=== PATIENT | male | born 1975 | race Caucasian/White ===

== ENCOUNTER 2017-04-17 07:01 | Day surgery (SDC) | payer BC ==
--- NOTE | ~2017-04-17 | OP ---
Record Of Operation [facility] [address] [place]. [address] NAME: LINDA CHANDLER : 79 STATUS : REG [facility]#: [id number] AGE: 41 ADM/REG DATE : 04/17/17 MR#: [id number] REPORT SERV DATE: 04/17/17 DICTATED BY: OLYA FLOOD DATE: 04/17/17 REPORT STATUS : Draft TRANSCRIBED BY: SIDDHARTH DATE: 04/17/17 DATE OF PROCEDURE: 04/17/2017 PREOPERATIVE DIAGNOSIS: Right ureteral stone. POSTOPERATIVE DIAGNOSIS: Right ureteral stone. PROCEDURE: Right ESWL. SURGEON: Olya Flood M.D. ANESTHESIA: MAC. SPECIMENS: None. ESTIMATED BLOOD LOSS: None. DISPOSITION: To day surgery in good condition. HISTORY: This is a 41-year-old gentleman with a right ureteral stone overlying the L3 transverse process. He presents today for treatment. PROCEDURE IN DETAIL: After consent was obtained, the patient was taken to the lithotripsy table and placed on the table in the supine position. His stone was located on two planes. MAC anesthetic was induced. He then received 3000 shocks at a maximum energy level of 7 and rate of 90 to the stone. He tolerated the procedure and was taken to day surgery in good condition. Plan will be to send him home today with followup in one to two weeks with a KUB. All of his prescriptions were given to him at his visit yesterday. BARI/SIDDHARTH Olya Flood M.D. / [id number] CC: Olya Flood M.D.
[~2017-04-17 07:01] MED LIST: FLOMAX4 PO; PERCOCET 7.5/321 TAB PO
[2017-04-17 07:59] LABS: BASOPHILS 1.1 %; BASOPHILS ABSOLUTE 0.07 10/3/uL (0.0-0.16); EOSINOPHILS 2.7 %; EOSINOPHILS ABSOLUTE 0.18 10/3/uL (0.0-0.53); HEMATOCRIT 45.4 % (40.0-51.0); HEMOGLOBIN 15.8 g/dL (13.6-17.8); IMMATURE GRANULOCYTES 0.2 %; IMMATURE GRANULOCYTES ABSOLUTE 0.01 10/3/uL (0.0-0.11); LYMPHOCYTES 42.7 %; LYMPHOCYTES ABSOLUTE 2.81 10/3/uL (0.67-4.30); MEAN CORPUS HGB CONC 34.8 g/dL (32.0-36.0); MEAN CORPUSCULAR HEMOGLOB 30.6 pg (26.0-34.0); MEAN CORPUSCULAR VOLUME 87.8 fL (80-100); MEAN PLATELET VOLUME 9.2 fL (9.2-13.0); MONOCYTES 8.5 %; MONOCYTES ABSOLUTE 0.56 10/3/uL (0.21-1.20); NEUTROPHILS 44.8 %; NEUTROPHILS ABSOLUTE 2.95 10/3/uL (2.02-8.40); PLATELET COUNT 239 10/3/uL (150-400); RBC DISTRIBUTION WIDTH 12.2 % (12.0-16.0); RED CELL COUNT 5.17 10/6/uL (4.7-6.1); WHITE BLOOD CELLS 6.6 10/3/uL (4.5-10.5)
[2017-04-17 08:00] LABS: MANUAL DIFF NO %
[2017-04-17 08:05] LABS: ASCORBIC ACID (UR NOT ORDER) NEG (NEG); BILIRUBIN, URINE NEGATIVE (NEG); KETONE, URINE NEGATIVE (NEG); LEUKOCYTE ESTERASE(NOT OR NEG (NEG); WBC (NOT ORDERED) (RFLEX) 1 (0-5)
[2017-04-17 08:09] LABS: BUN (BLOOD UREA NITROGEN) 17 MG/DL (6-23); CALCIUM, SERUM 9.2 MG/DL (8.5-10.4); CHLORIDE, SERUM 107 MMOL/L (96-112); CO2 (CARBON DIOXIDE) 30 MMOL/L (24-34); CREATININE 0.99 MG/DL (0.70-1.30); GFR AFRICAN AMERICAN 111 ML/MIN (>=60); GFR NON AFRICAN AMERICAN 96 ML/MIN (>=60); GLUCOSE, SERUM 102 MG/DL (60-99); POTASSIUM, SERUM 4.1 MMOL/L (3.5-5.3); SODIUM, SERUM 143 MMOL/L (135-148)
[2017-04-17 08:16] LABS: PFA (COL/EPI) 119 SEC (72-180)
== END 2017-04-17 17:19 | disposition home or self-care (01) ==
LOC: SDC 07:01
PROVIDERS: Urology
PROC: 0TF6XZZ Fragmentation in Right Ureter, External Approach (ICD-10-PCS; principal; 2017-04-17 09:00)
DX: N20.1 Calculus of ureter (principal)
CPT/HCPCS: 50590; 74000; 80048; 81001; 84550; 85025; 85576; A9270-GY; J1170; J2250; J2405; J2550; J3010